=== PATIENT | male | born 2000 | race Caucasian/White ===

== ENCOUNTER 2021-12-17 08:36 | Emergency (ER) | payer MEDICAID, SELFPAY ==
[2021-12-17 08:37] VITALS: BP 156/103; PULSE 116; RESP 18; TEMP 36.3; O2SAT 100; BMI 27.8
[2021-12-17] MEDS: Lidocaine 5% Patch 1 PATCH TOPICAL (09:00)
[2021-12-17] MEDS: Naproxen 250 MG Tablet 500 MG PO (09:00)
--- NOTE | 2021-12-17 09:08 | ED.VIS.BACK ---
HPI History of Present Illness Chief Complaint: Back Detail of Chief Complaint: Bilateral low back pain with radiation to both legs Informant: patient and spouse/S.O. Onset/Context/Timing Onset: Weeks (Onset approxi-1 week ago) Injury: - (Initially patient denied. Please read HPI narrative) Timing: Continuous Quality: Dull and Aching Location: Lumbar, Buttock, Right Leg and Left Leg Current Severity: Mild Maximum Severity: Moderate Worsened by: improves with Movement, Ambulation, Bending and Lifting; worse with Night time pain Relieved by: Nothing Associated Symptoms Associated Symptoms: Radiation to Right Leg, Radiation to Left Leg and - (Denies saddle paresthesia or anesthesia. Denies foot drop. Denies buckling of knees going up or down steps); Negative for Numbness, Tingling, Fever, Abdominal Pain, Dysuria, Unable to Ambulate, Unable to Transfer, Urinary Retention, Urinary Incontinence, Constipation or Fecal Incontinence Narrative Narrative: Patient is an 20-year-old male who presents with back pain that started 1 week ago. Patient states this was atraumatic. It was later determined that he skateboards and fell approximately 1 week ago. Furthermore, he recently moved in with relative. The pain started shortly thereafter. Patient denies constitutional symptoms. Patient denies weight loss. Patient denies urologic symptoms. Prior similar symptoms: No Recent Illness/Hospitalization: No PFSH PFSH Medical History no medical history no medical history Home Medications naproxen 500 mg tablet 500 mg PO BID #14 tabs 12/17/21 [Rx Last Taken Unknown] Allergy/AdvReac Type Severity Reaction Status Date / Time No Known Allergies Allergy Verified 12/17/21 08:38 Social History (Updated 12/17/21 @ 09:[address] Jose Feliciano MD) household members: significant other Smoking Status: Never smoker substance use type: does not use ROS ROS ED Constitutional Constitutional ED: Denies chills, fever(s), subjective, sweats or weight loss Gastrointestinal Gastrointestinal: Denies abdominal pain, constipation, diarrhea, melena, nausea or vomiting Genitourinary Genitourinary ED: Reports other Details: Please review HPI narrative ; Denies dysuria, hematuria or urinary frequency Musculoskeletal Musculoskeletal: Reports back pain; Denies arthralgias, myalgias or neck pain Integumentary Denies abscess, Abrasions or rash Neurologic Neurologic: Reports other Details: Please review HPI narrative ; Denies headache(s), paresthesias or weakness Endocrine Endocrinology: Denies cold intolerance or heat intolerance Hematologic/Lymphatic Hematologic/Lymphatic: Denies easy bleeding or easy bruising EXAM Physical Exam Const Vital Signs: 12/17/21 08:37 Temperature 97.3 F L Temperature Source Temporal Pulse Rate 116 H Respiratory Rate 18 Blood Pressure 156/103 H Blood Pressure Mean 120 Pulse Ox 100 Oxygen Delivery Method Room Air Positive well nourished and well developed Constitutional Narrative: Patient appears uncomfortable. General Appearance ED: well developed; Negative for NAD or pallor HEENT Reports moist mucous membranes HEENT Narrative: Ears normal. Nares patent. Uvula midline. There is no erythema or exudate. Mucosas moist. Negative for trauma or tenderness Eyes PERRL and EOMs intact bilaterally General Eye ED: Negative for pale conjunctiva or scleral icterus Neck no lymphadenopathy, supple and no JVD Resp normal respiratory effort and clear to auscultation bilaterally Cardio regular rate, regular rhythm, S1 normal heart sound, S2 normal heart sound and no murmurs GI normal to inspection, nondistended, normoactive bowel sounds, soft to palpation, non-tender and non-distended Back/Spine normal to inspection; Negative for no thoracic nor lumbar tenderness Back/Spine Narrative: Patient reports pain that radiates to the popliteal fossa with straight leg test right and left. Negative bowstring sign right or left. Normal sensation over L3, L4, L5 and S1 dermatome. EHLs intact. Patella and ankle reflex are 2+ and symmetric. DP and PT pulse are palpable. 5 of 5 strength with plantar and dorsiflexion of the foot. 5/5 strength quadricep muscle. Cervical Spine: Negative for cervical spine tenderness and Negative for paracervical muscle tenderness Thoracic Spine / Upper Back: Negative for paraspinal muscle tenderness Lumbar Spine / Lower Back: straight leg raise negative bilaterally Extremity normal to inspection and no clubbing, cyanosis or edema Neuro oriented x3 and no sensory deficits noted Sensorium / Orientation: alert Motor Exam: strength 5/5 throughout Deep Tendon Reflexes: Rt Patellar (L4): 2+, Lt Patellar (L4): 2+, Rt Ankle (S1): 2+ and Lt Ankle (S1): 2+ Deep Tendon Reflexes Back: Rt Patellar (L4): 2+, Lt Patellar (L4): 2+, Rt Ankle (S1): 2+ and Lt Ankle (S1): 2+ Plantar Reflex: Downgoing: bilateral (Negative clonus) Psych mental status grossly normal Skin no rashes or lesions noted and no wounds General Skin Exam: Negative for jaundice or pallor MDM MDM MDM Narrative Medical decision making narrative: With history of fall and pain shortly after moving suspect this is muscular etiology. History and physical is not consistent with radicular pain/herniated disc. Patient was treated with NSAIDs she has no contraindication. Patient was reassessed at 0928. Patient states he received the medicine about 15 to 20 minutes ago. There is slight improvement. Plan is discharged to home with appropriate home-going instructions Discharge Plan Triage Chief Complaint: Back ED Provider: Jose Feliciano Dx/Rx/DC Orders Clinical Impression: Acute bilateral low back pain Instructions: ED Back Sprain/Strain Prescriptions: New naproxen 500 mg tablet 500 mg PO BID Qty: 14 0RF Primary Care Provider: Care Physician,No Primary Referrals: Care Physician,No Primary [Primary Care Provider] - Doctor,Your [STAFF PHYSICIAN] - 3-5 Days if not improving Activity Restrictions/Additional Instructions: The name of your doctor is located on the insurance card issue to you by care source. Disposition Disposition: Home, Self Care
[2021-12-17 09:52] VITALS: BP 124/68; PULSE 74; RESP 15; O2SAT 98
== END 2021-12-17 09:52 | disposition home or self-care (01) ==
PROVIDERS: Emergency Provider Emergency Medicine; Visit Provider Emergency Medicine
DX: M54.50 Low back pain, unspecified (principal)
CPT/HCPCS: 99284

== ENCOUNTER → 2022-07-16 | Outpatient (CLI) | payer MEDICAID, SELFPAY ==
--- NOTE | 2022-07-16 13:04 | US_ITS ---
STUDY: ULTRASOUND BREAST - RIGHT REASON FOR EXAM: Male, 21 years old. Gynecomastia. TECHNIQUE: Axial and longitudinal images of the RIGHT breast were performed with a high resolution ultrasound transducer. # OF IMAGES: 83 COMPARISON: None. FINDINGS: RIGHT Breast: The entire right breast was examined. There is evidence of breast tissue. No sonographic abnormality is seen. IMPRESSION: No sonographic abnormality is seen. ASSESSMENT CATEGORY: BIRADS Category 1: Negative. A letter regarding these results will be sent to the patient by the facility within 30 days. Electronically Signed: Marcel Ku MD at 13:38 EST , STUDY: ULTRASOUND BREAST - LEFT REASON FOR EXAM: Male, 21 years old. Gynecomastia. TECHNIQUE: Axial and longitudinal images of the LEFT breast were performed with a high resolution ultrasound transducer. # OF IMAGES: 83 COMPARISON: None. FINDINGS: LEFT Breast: The entire left breast was examined with ultrasound. There is evidence of fibroglandular tissue. No sonographic abnormality is seen. US/Breast Limited Unilateral IMPRESSION: No sonographic abnormality is seen. ASSESSMENT CATEGORY: BIRADS Category 1: Negative. A letter regarding these results will be sent to the patient by the facility within 30 days. Electronically Signed: Marcel Ku MD at 13:39 EST ,
== END | disposition home or self-care (01) ==
LOC: OPUS 13:01
PROVIDERS: PCP Family Medicine; Visit Provider Family Medicine
DX: N62 Hypertrophy of breast (principal)
CPT/HCPCS: 76642